=== PATIENT | male | born 1970 | race Caucasian/White ===

== ENCOUNTER → 2018-03-04 | Outpatient (CLI) | payer BC | LOC: LAB SHORT 15:45 → LAB 15:45 | DX: N39.0 Urinary tract infection, site not specified (principal) | CPT/HCPCS: 87077; 87086; 87186 ==

== ENCOUNTER 2019-05-08 12:40 | Day surgery (SDC) | payer BC ==
[~2019-05-08] VITALS: Ht 188 cm; Wt 100.3 kg
[2019-05-08] MEDS ORDERED: TERB250 (14:15)
[2019-05-08] MEDS ORDERED: Azor 10-20 MG1 EACH (14:15)
== END 2019-05-08 15:25 | disposition home or self-care (01) ==
LOC: ORSCSDS 12:40
PROVIDERS: Internal Medicine Gastroenterology
PROC: 0DBL8ZX Excision of Transverse Colon, Via Natural or Artificial Opening Endoscopic, Diagnostic (ICD-10-PCS; principal; 2019-05-08 15:00)
PROC: 0DBP8ZX Excision of Rectum, Via Natural or Artificial Opening Endoscopic, Diagnostic (ICD-10-PCS; principal; 2019-05-08 15:00)
PROC: 0DBH8ZX Excision of Cecum, Via Natural or Artificial Opening Endoscopic, Diagnostic (ICD-10-PCS; principal; 2019-05-08 15:00)
DX: Z12.11 Encounter for screening for malignant neoplasm of colon (principal); K63.5 Polyp of colon; K62.1 Rectal polyp; D12.3 Benign neoplasm of transverse colon; K57.30 Diverticulosis of large intestine without perforation or abscess without bleeding; K64.8 Other hemorrhoids; I10 Essential (primary) hypertension; E78.5 Hyperlipidemia, unspecified; E66.9 Obesity, unspecified; Z68.30 Body mass index [BMI] 30.0-30.9, adult; Z79.899 Other long term (current) drug therapy
CPT/HCPCS: 88305; J2704; J7120

== ENCOUNTER 2025-03-20 07:21 | Day surgery (SDC) | payer BC ==
[~2025-03-20] VITALS: Ht 188 cm; Wt 105.2 kg
[~2025-03-20 07:21] MED LIST: Azor 10-20 MG1 EACH; TERB250
[2025-03-20] MEDS ORDERED: CARV25 (07:47)
[2025-03-20] MEDS ORDERED: LOSA50 (07:47)
[2025-03-20] MEDS ORDERED: CLONIDINE (07:47)
[2025-03-20 09:53] VITALS: BP 156/97
== END 2025-03-20 09:59 | disposition home or self-care (01) ==
LOC: ORSCSDS 07:21
PROVIDERS: Specialist
PROC: 0DBN8ZX Excision of Sigmoid Colon, Via Natural or Artificial Opening Endoscopic, Diagnostic (ICD-10-PCS; principal; 2025-03-20 08:45)
PROC: 0DBL8ZX Excision of Transverse Colon, Via Natural or Artificial Opening Endoscopic, Diagnostic (ICD-10-PCS; principal; 2025-03-20 08:45)
DX: Z12.11 Encounter for screening for malignant neoplasm of colon (principal); D12.3 Benign neoplasm of transverse colon; D12.5 Benign neoplasm of sigmoid colon; K64.8 Other hemorrhoids; K57.30 Diverticulosis of large intestine without perforation or abscess without bleeding; Z86.0101 Personal history of adenomatous and serrated colon polyps; I10 Essential (primary) hypertension; Z79.899 Other long term (current) drug therapy
CPT/HCPCS: 88305; J2704; J7120